=== PATIENT | female | born 2000 | race Two or more races ===

== ENCOUNTER 2024-10-03 18:07 | Emergency (ER) | payer OTHER, MEDICARE, MEDICAID ==
[~2024-10-03] VITALS: Ht 142.2 cm; Wt 50.0 kg
[2024-10-03 18:56] VITALS: BP 123/76; PULSE 101; RESP 18; TEMP 98.7; O2SAT 96
--- NOTE | 2024-10-03 19:25 | ED.PDOC ---
Eye-HPI HPI Comments Pt presents to ER with a C/C of bilateral ear pain that started yesterday. Pt r eports pain 8/10 at this time. Denies fever, chills, trauma, nausea, vomiting, dizziness or any changes in hearing. Chief Complaint: Earache Time Seen by MD: 18:09 Reviewed Notes: Nurses Notes, Medications, Allergies Allergies: Coded Allergies: NO KNOWN ALLERGIES (Unverified , 10/03/24) Home Meds Active Scripts [id number]-[id number]-Wn (Otic) (Cortisporin Otic Susp) [address], 4 DROP LEFT EAR TID for 7 Days, #3 ML Prov:ALKA CARDENAS [employer]ACHINE [employer] 10/03/24 Information Source: Patient Mode of Arrival: Wheelchair Past Medical History PAST MEDICAL HISTORY: Denies Surgical History: Denies all surgeries [employer] History: No Pertinent SU[employer] History Family History Family History: Unknown Social History Smoker: Non-Smoker Alcohol: Denies ETOH Use Drugs: Denies Drug Use Constitutional: denies: chills, diaphoresis, fatigue, fever, malaise, sweats, weakness, others EENTM: reports: ear pain; denies: blurred vision, double vision, ear bleeding, ear discharge, ear drainage, ear ringing, eye pain, eye redness, hearing loss, mouth pain, mouth swelling, nasal discharge, nose bleeding, nose congestion, nose pain, photophobia, tearing, throat pain, throat swelling, voice changes, others Respiratory: denies: cough, hemoptysis, orthopnea, SOB at rest, shortness of breath, SOB with excertion, stridor, wheezing, others Cardiovascular: denies: chest pain, dizzy spells, diaphoresis, Dyspnea on exertion, edema, irregular heart beat, left arm pain, lightheadedness, palpitations, PND, syncope, others Gastrointestinal: denies: abdomen distended, abdominal pain, blood streaked bowels, constipated, diarrhea, dysphagia, difficulty swallowing, hematemesis, melena, nausea, poor appetite, poor fluid intake, rectal bleeding, rectal pain, vomiting, others Genitourinary: denies: abnormal vagina bleeding, burning, dyspareunia, dysuria, flank pain, frequency, hematuria, incontinence, pain, , vagina discharge, urgency, others Neurological: denies: dizziness, fainting, headache, left sided numbness, left sided weakness, numbness, paresthesia, pre-existing deficit, right sided numbness, right sided weakness, seizure, speech problems, tingling, tremors, weakness, others Musculoskeletal: denies: back pain, gout, joint pain, joint swelling, muscle pain, muscle stiffness, neck pain, others Integumetry: denies: bruises, change in color, change in hair/nails, dryness, laceration, lesions, lumps, rash, wounds, others Allergic/Immunocompromised: denies: Difficulty Healing, Frequent Infections, Hives, Itching, others Hematologic/Lymphatic: denies: anemia, blood clots, easy bleeding, easy bruising, swollen glands, others Endocrine: denies: excessive hunger, excessive sweating, excessive thirst, excessive urination, flushing, intolerance to cold, intolerance to heat, unexplained weight gain, unexplained weight loss, others Psychiatric: denies: anxiety, bipolar disorder, depression, hopeless, panic disorder, schizophrenia, sleepless, suicidal, others Physical Exam General Appearance: No Apparent Distress, Normal HEENT: Pharynx Normal, TMs Normal, Other (bilateral cerumen impaction ) Neck: Full Range of Motion, Non-Tender, Normal, Normal Inspection Respiratory: Chest Non-Tender, Lungs Clear, No Accessory Muscle Use, No Respiratory Distress, Normal Breath Sounds Cardiovascular: No Edema, No JVD, No Murmur, No Gallop, Normal Peripheral Pulses, Regular Rate/Rhythm Breast Exam: Deferred Gastrointestinal: No Organomegaly, Non Tender, No Pulsatile Mass, Normal Bowel Sounds, Soft Genitalia: Deferred Pelvic: Deferred Rectal: Deferred Extremities: No calf tenderness, Normal capillary refill, Normal inspection, Normal range of motion, Non-tender, No pedal edema Musculoskeletal : Apperance: Normal Neurologic: Alert, chamber magistrate II-XII nml as Tested, No Motor Deficits, Normal Affect, Normal Mood, No Sensory Deficits Cerebellar Function: Normal Reflexes: Normal Skin: Dry, Normal Color, Warm Lymphatic: No Adenopathy Was a procedure done? Was a procedure done?: Yes Sedation Sedation?: No Foreign Body Removal Foreign body in: Ear Anesthetic: Nothing Prep: Saline, Irrigation Procedure: Removed Informed consent obtained: Yes Risks/benefits/alt described: Yes Notes WAX IMPACTION BILATERAL EARS PATIENT TOLERATED WELL EENT DIFF Eye: N/A Ear: Cerumen Impaction, Foreign Body, Otitis Externa, Barotrauma, Otitis Media, Perforation, Dental, Pharyngitis X-Ray, Labs, Meds, VS Vital Signs Date Time Temp Pulse Resp B/P (MAP) Pulse Ox O2 Delivery O2 Flow Rate FiO2 10/03/24 18:56 98.7 101 18 123/76 (92) 96 98.7 10/03/24 18:56 101 18 96 Room Air 10/03/24 18:27 98.7 101 18 123/76 (92) 96 98.7 X-Ray, Labs, Meds, VS Comment SEE PROCEDURE NOTE. TRIAL CORTISPORIN DROPS, TAKE MEDICATIONS . PRESCRIBED SIDE EFFECTS DISCUSSED . FOLLOW UP WITH YOUR PCP 1-2 DAYS NECESSARY ER RETURN PRECAUTIONS GIVEN PATIENT INDICATES UNDERSTANDING AGREES WITH DISCHARGE PLAN OF CARE. Time of 1ST Reevaluation: 19:25 Reevaluation 1ST: Unchanged Time of 2ND Reevaluation: 19:53 Reevaluation 2ND: Improved Patient Education/Counseling: Diagnosis, Treatment, Prognosis, Need For Follow Up Family Education/Counseling: Diagnosis, Treatment, Prognosis, Need For Follow Up Departure 1 Departure Time of Disposition: 19:54 Impression: Primary Impression: Impacted cerumen, bilateral Additional Impression: Otitis externa of left ear Qualified Codes: H60.502 - Unspecified acute noninfective otitis externa, left ear Disposition: 01 HOME / SELF CARE / HOMELESS Condition: Stable e-Prescriptions [id number] (Otic) (Cortisporin Otic Susp) [address] 4 DROP LEFT EAR TID for 7 Days, #3 ML Prov: ALKA CARDENAS 10/03/24 Discharged With: Relative (Mother) Critical Care Note Critical Care Time?: No Stability Stability form required: No ALKA CARDENAS Oct 03, 2024 19:25
[2024-10-03] MEDS ORDERED: COROSUS LEFT EAR (19:56)
== END 2024-10-03 20:20 | disposition home or self-care (01) ==
LOC: ER 18:07
DX: H61.23 Impacted cerumen, bilateral (principal); H60.92 Unspecified otitis externa, left ear; Z79.899 Other long term (current) drug therapy
CPT/HCPCS: 69209